=== PATIENT | female | born 1960 | race Caucasian/White ===

== ENCOUNTER 2022-04-18 08:49 | Emergency (ER) | payer OTHER ==
[~2022-04-18] VITALS: Ht 157.5 cm; Wt 96.6 kg
[2022-04-18 09:07] VITALS: BP_SYST 147
--- NOTE | 2022-04-18 09:44 | NUR ---
MD POSADA AT BEDSIDE FOR ASSESS.
[2022-04-18] MEDS ORDERED: MORPHINE 4 MG INJ. 4 MG/ML VIAL IM ONE (10:00)
[2022-04-18] MEDS ORDERED: NAPR-688 PO (10:44)
[2022-04-18] MEDS ORDERED: HYDR-3917 PO (10:44)
[2022-04-18] MEDS ORDERED: OXYCODONE/ACETAMINOPHEN *10*mg/325 mg TABLET ONE (10:58)
[2022-04-18] MEDS ORDERED: OXYCODONE/ACETAMINOPHEN *10*mg/325 mg TABLET PO ONE (11:00)
[2022-04-18 11:08] VITALS: BP_SYST 136
--- NOTE | 2022-04-18 11:08 | NUR ---
Patient given written and verbal discharge instructions and verbalizes understanding. ER MD discussed with patient the results and treatment provided. Patient in stable condition. ID arm band removed. IV catheter removed intact and dressing applied, no active bleeding. Rx of NORCO, NAPROXEN given. Patient educated on pain management and to follow up with PMD. Pain Scale . Opportunity for questions provided and answered. Medication side effect fact sheet provided.
[2022-04-19] MEDS ORDERED: PERC10 PO (06:13)
== END 2022-04-18 11:08 | disposition home or self-care (01) ==
LOC: SED 08:49
DX: S42.201A Unspecified fracture of upper end of right humerus, initial encounter for closed fracture (principal); I10 Essential (primary) hypertension; Z88.0 Allergy status to penicillin; Z88.5 Allergy status to narcotic agent; Z79.899 Other long term (current) drug therapy; W10.8XXA Fall (on) (from) other stairs and steps, initial encounter; Y93.89 Activity, other specified; Y92.89 Other specified places as the place of occurrence of the external cause; Y99.8 Other external cause status
CPT/HCPCS: 99283; 73060; 96372; J2270

== ENCOUNTER 2023-01-20 12:53 | Emergency (ER) | payer OTHER ==
[~2023-01-20] VITALS: Ht 167.6 cm; Wt 81.6 kg
[~2023-01-20 12:53] MED LIST: HYDR-3917 PO; NAPR-688 PO; PERC10 PO
[2023-01-20 13:00] VITALS: BP_SYST 127
[2023-01-20] MEDS ORDERED: NALOXONE HCL 0.4 MG/ML AMP (NARCAN) IVP ONE (13:15)
[2023-01-20 13:49] LABS: BASOPHILS # (AUTO) 0.1 K/uL (0.0-0.2); BASOPHILS % (AUTO) 1.1 % (0.0-2.0); EOSINOPHILS # (AUTO) 0.1 K/uL (0.0-0.4); EOSINOPHILS % (AUTO) 1.7 % (0.0-4.0); HEMATOCRIT 45.1 % (36-48); HEMOGLOBIN 14.9 g/dL (12.0-16.0); LYMPHOCYTES # (AUTO) 2.3 K/uL (1.0-5.5); LYMPHOCYTES % (AUTO) 39.4 % (20.5-51.5); MEAN CORPUSCULAR HEMOGLOBIN 30 pg (27-31); MEAN CORPUSCULAR HGB CONC 33 % (32-36); MEAN CORPUSCULAR VOLUME 89 fL (79.0-98.0); MONOCYTES # (AUTO) 0.4 K/uL (0.0-1.0); MONOCYTES % (AUTO) 6.9 % (1.7-9.3); NEUTROPHILS % (AUTO) 50.9 % (40.0-70.0); PLATELET COUNT (AUTO) 264 K/uL (130-430); RED BLOOD CELL COUNT(AUTO) 5.05 MIL/uL (4.2-6.2); RED CELL DISTRIBUTION WIDTH 15.7 % (9.0-15.0); WHITE BLOOD COUNT (AUTO) 5.9 K/uL (4.8-10.8)
[2023-01-20 14:05] LABS: ANION GAP 12 (5-15); CALCIUM 8.1 mg/dL (8.4-11.0); CHLORIDE 109 mmol/L (98-107); GFR AFRICAN AMERICAN 109 mL/min (>90); GLUCOSE 97 mg/dL (70-99); UREA NITROGEN, BLOOD 11 mg/dL (8-21)
[2023-01-20 14:07] LABS: PROTHROMBIN TIME 10.8 SECS (9.5-12.5)
[2023-01-20 14:11] LABS: ALANINE AMINOTRANSFERASE 21 U/L (12-78); ALBUMIN 3.5 g/dL (3.4-4.8); ALCOHOL, BLOOD 378 mg/dL (<10); ASPARTATE AMINOTRANSFERASE 18 U/L (10-37); TOTAL BILIRUBIN 0.1 mg/dL (0.0-1.0)
[2023-01-20 14:12] LABS: ACETAMINOPHEN < 1 ug/mL (1-30)
[2023-01-20] MEDS ORDERED: FOLIC ACID 1 MG, THIAMINE HCL 100 MG, MAGNESIUM SULFATE 1 GM, MVI 10 ML in NACL 0.9% 1,... IV ONE (14:45)
[2023-01-20] MEDS ORDERED: NACL 0.9% 1,000 ML IV ONE (14:45)
[2023-01-20] MEDS ORDERED: FOLIC ACID 5 MG/ML VIAL IV ONE (15:41)
[2023-01-20] MEDS ORDERED: MAGNESIUM SULFATE 1 GM/2 ML VIAL ONE (15:41)
[2023-01-20] MEDS ORDERED: THIAMINE HCL 100 MG/ML VIAL ONE (15:41)
[2023-01-20 19:37] VITALS: BP_SYST 129
== END 2023-01-20 19:36 | disposition home or self-care (01) ==
LOC: SED 12:53
DX: F10.129 Alcohol abuse with intoxication, unspecified (principal); R41.82 Altered mental status, unspecified; I10 Essential (primary) hypertension; Z88.0 Allergy status to penicillin; Z88.5 Allergy status to narcotic agent; Z86.59 Personal history of other mental and behavioral disorders; Z79.899 Other long term (current) drug therapy; Y90.6 Blood alcohol level of 120-199 mg/100 ml
CPT/HCPCS: 99285; 96365; 70450; 71045; 96366; 96361; 96375; 80053; 82009; 82140; 82550; 85025; 85610; 85730; 84484; 36415; 93005; 76376; 82803; G0482; J2310; J7030; G0480; G0481; J3411; J3475; J3490